=== PATIENT | female | born 1990 | race Two or more races ===

== ENCOUNTER 2018-06-06 00:30 | Observation (INO) | END 2018-06-06 15:50 | disposition home or self-care (01) ==

== ENCOUNTER 2018-06-11 11:10 | Outpatient (CLI) | END 2018-06-11 14:13 | disposition home or self-care (01) ==

== ENCOUNTER 2018-06-11 19:05 | Inpatient (IN) | END 2018-06-15 15:00 | disposition home or self-care (01) | DRG 807 ==

== ENCOUNTER 2018-08-29 16:54 | Emergency (ER) | payer OTHER ==
[~2018-08-29] VITALS: Wt 73.6 kg
[~2018-08-29 16:54] MED LIST: IBUP-1542 PO
[2018-08-29 17:02] VITALS: BP 130/65; PULSE 115; RESP 19
[2018-08-29] MEDS ORDERED: SOD CHLORIDE 0.9% 1,000 ML IV STA (17:54)
[2018-08-29] MEDS ORDERED: ACETAMINOPHEN 500 MG TAB PO STA (17:54)
[2018-08-29] MEDS ORDERED: CEPH-443 PO (19:41)
--- NOTE | 2018-08-29 19:46 | ERD ---
ER Documentation Chief Complaint Chief Complaint bib self, cc: diarrhea and nausea for 2 days HPI 28-year-old female presents complaining of diarrhea body aches and chills that began yesterday. Denies fever. No nausea or vomiting. No cough. No dysuria or hematuria but does have urinary frequency. ROS All systems reviewed and are negative except as per history of present illness. Medications Home Meds Active Scripts Cephalexin* (Keflex*) 500 Mg Capsule, 500 MG PO Q8, #21 CAP Prov:ARVIND DOWNEY PA-C 08/29/18 Ibuprofen* (Ibuprofen*) 600 Mg Tablet, 600 MG PO Q6, #60 TAB 0 Refills Prov:MARIO NOLAND MD 06/14/18 Allergies Allergies: Coded Allergies: No Known Allergy (Unverified , 06/12/18) PMhx/Soc Medical and Surgical Hx: pt denies Medical Hx, pt denies Surgical Hx Hx Alcohol Use: No Hx Substance Use: No Hx Tobacco Use: No Smoking Status: Never smoker FmHx Family History: No diabetes Physical Exam Vitals Vital Signs Date Temp Pulse Resp B/P (MAP) Pulse Ox O2 O2 Flow FiO2 Time Delivery Rate 08/29/18 99.9 19:24 08/29/18 102.0 18:40 08/29/18 102.0 115 19 130/65 100 17:02 (86) Physical Exam INITIAL VITAL SIGNS: Reviewed by me GENERAL: Awake, alert and oriented x 4, well appearing, nontoxic, speaking in full sentences. No acute distress HEAD: Atraumatic NECK: Supple. No masses. Full range of motion. No meningismus. No midline tenderness. EYES: EOMI. PERRL. THROAT: No tonilar erythema or edema. No exudates. Uvula midline. No kissing tonsils. RESPIRATORY: Clear to auscultation bilaterally. Symmetric chest wall rise. No wheezing or rales. No accessory muscle use. CV: Regular rate and rhythm. No murmurs, rubs, or gallops. ABDOMEN: Soft, non-distended. Nontender. Negative [place]. Negative [place] point tenderness. No CVA tenderness bilaterally. No guarding. No rebound. Result Diagram: 08/29/18 18308/29/18 183 Results 24 hrs Laboratory Tests Test 08/29/18 18:33 08/29/18 18:37 White Blood Count 8.1 10^3/ul Red Blood Count 4.18 10^6/ul Hemoglobin 12.4 g/dl Hematocrit 37.7 % Mean Corpuscular Volume 90.2 fl Mean Corpuscular Hemoglobin 29.7 pg Mean Corpuscular Hemoglobin Concent 32.9 g/dl Red Cell Distribution Width 11.8 % Platelet Count 204 10^3/UL Mean Platelet Volume 11.0 fl Immature Granulocytes % 0.400 % Neutrophils % 87.2 % Lymphocytes % 7.3 % Monocytes % 4.9 % Eosinophils % 0.1 % Basophils % 0.1 % Nucleated Red Blood Cells % 0.0 /100WBC Immature Granulocytes # 0.030 10^3/ul Neutrophils # 7.1 10^3/ul Lymphocytes # 0.6 10^3/ul Monocytes # 0.4 10^3/ul Eosinophils # 0.0 10^3/ul Basophils # 0.0 10^3/ul Nucleated Red Blood Cells # 0.0 10^3/ul Urine Color YELLOW Urine Clarity SLIGHTLY CLOUDY Urine pH 6.0 Urine Specific [place] 1.008 Urine Ketones NEGATIVE mg/dL Urine Nitrite NEGATIVE mg/dL Urine Bilirubin NEGATIVE mg/dL Urine Urobilinogen NEGATIVE mg/dL Urine Leukocyte Esterase 3+ José/ul Urine Microscopic RBC 5 /HPF Urine Microscopic WBC 80 /HPF Urine Squamous Epithelial Cells FEW /HPF Urine Mucus FEW /HPF Urine Hemoglobin 1+ mg/dL Urine Glucose NEGATIVE mg/dL Urine Total Protein NEGATIVE mg/dl Sodium Level 138 mmol/L Potassium Level 3.7 mmol/L Chloride Level 101 mmol/L Carbon Dioxide Level 26 mmol/L Anion Gap 11 Blood Urea Nitrogen 8 mg/dl Creatinine 0.62 mg/dl Est Glomerular Filtrat Rate mL/min > 60 mL/min Glucose Level 103 mg/dl Calcium Level 9.7 mg/dl Total Bilirubin 1.5 mg/dl Direct Bilirubin 0.00 mg/dl Indirect Bilirubin 1.5 mg/dl Aspartate Amino Transf (AST/SGOT) 43 IU/L Alanine Aminotransferase (ALT/SGPT) 70 IU/L Alkaline Phosphatase 53 IU/L Total Protein 7.2 g/dl Albumin 4.5 g/dl Globulin 2.70 g/dl Albumin/Globulin Ratio 1.66 Lipase 55 U/L POC Beta HCG, Qualitative NEGATIVE Current Medications Medications Dose Sig/Samuel Start Time Status Last (Trade) Ordered Route PRN Stop Time Admin Dose Reason Admin Sodium 1,000 ml @ Q1H STAT 08/29/18 DC 08/29/18 Chloride 1,000 mls/hr IV 17:54 18:39 08/29/18 18:53 1,000 mg ONCE STAT 08/29/18 DC 08/29/18 Acetaminophen PO 17:54 18:40 (Tylenol 08/29/18 17:55 Tab) Procedures/MDM 28-year-old female presents with diarrhea body aches and chills. Temperature in triage was 102 although patient denies having fever, therefore I rechecked it in the exam room and it was 99.7. I ordered blood work which was unremarkable however she did have evidence of urinary tract infection she will be treated outpatient with Keflex. Patient counseled regarding my diagnostic impression and care plan. Prior to discharge all questions answered. Pt agrees with treatment plan and understands strict return precautions. Pt is instructed to follow up with primary care provider within 24-48 hours. Precautionary instructions provided including instructions to return to the ER if not improving or for any worsening or changing symptoms or concerns. Departure Diagnosis: Primary Impression: Cystitis Additional Impression: Diarrhea Condition: Stable Patient Instructions: Cystitis Additional Instructions: Call your primary care doctor TOMORROW for an appointment during the next 1-2 days.See the doctor sooner or return here if your condition worsens before your appointment time. ARVIND DOWNEY PA-C Aug 29, 2018 19:46
== END 2018-08-29 20:05 | disposition home or self-care (01) ==
LOC: FTE 16:54
DX: N30.90 Cystitis, unspecified without hematuria (principal)
CPT/HCPCS: 36415; 80053; 81001; 81025; 83690; 85025; J7030; Z7502; Z7610